=== PATIENT | male | born 1970 | race Caucasian/White ===

== ENCOUNTER 2016-06-29 16:59 | Inpatient (IN) | payer BC ==
[~2016-06-29] VITALS: Ht 182.9 cm; Wt 138.6 kg
[~2016-06-29 16:59] MED LIST: GLCSR500 PO; GLYB5TAB3 PO; LORA-741 PO; SERT-234 PO
[2016-06-29 17:03] VITALS: BP 183/78; TEMP 36.9; O2SAT 96; Ht 182.9 cm; Wt 138.6 kg
[2016-06-29] MEDS ORDERED: NVLGI7030 SC (17:26)
--- NOTE | 2016-06-29 17:29 | DIAGNOSTIC IMAGING REPORT ---
CHEST ONE VIEW PORTABLE CLINICAL HISTORY: Atypical chest pain COMPARISON STUDY: No previous studies for comparison. FINDINGS: The heart is mildly enlarged. There is no failure. There is no focal pulmonary consolidation. There are no pleural effusions. No pneumothorax is visualized.[ IMPRESSION: No active disease in the chest. Electronically signed by: Jerardo France M.D. 06/29/2016 5:28 PM Dictated Date/Time: 06/29/2016 5:27 PM
[2016-06-29 17:30] VITALS: O2SAT 96
[2016-06-29 17:49] LABS: BASO % 0.3 %; BASO ABS # 0.02 K/uL (0-0.2); COMPLETE YES; EOS % 2.8 %; HEMATOCRIT 40.6 % (42-52); IG% 0.6 %; LYMPH ABS # 2.39 K/uL (1.2-3.4); MEAN CELL VOLUME 84.2 fL (80-100); MEAN CORPUSCULAR HEMOGLOBIN 30.7 pg (25-34); MEAN CORPUSCULAR HGB CONC 36.5 g/dl (32-36); MEAN PLATELET VOLUME 11.6 fL (7.4-10.4); MONO % 7.9 %; NEUT % 53.4 %; PLATELET COUNT 190 K/uL (130-400); RED BLOOD COUNT 4.82 M/uL (4.7-6.1); WHITE BLOOD COUNT 6.82 K/uL (4.8-10.8)
[2016-06-29 18:07] LABS: ALT/SGPT 40 U/L (12-78); AST/SGOT 19 U/L (15-37); BLOOD UREA NITROGEN 15 mg/dl (7-18); BUN/CREATININE RATIO 15.9 (10-20); CALCIUM 9.2 mg/dl (8.5-10.1); CARBON DIOXIDE 28 mmol/L (21-32); CHLORIDE 102 mmol/L (98-107); CREATININE 0.95 mg/dl (0.60-1.40); GLUCOSE 142 mg/dl (70-99); POTASSIUM 3.9 mmol/L (3.5-5.1); SODIUM 141 mmol/L (136-145)
[2016-06-29 18:13] LABS: ALKALINE PHOSPHATASE 52 U/L (45-117); CKMB/CK RATIO 1.1 (0-3.0)
[2016-06-29 18:32] VITALS: PULSE 84
[2016-06-29] MEDS ORDERED: ASPIRIN 81 MG CHEW PO STA (18:46)
[2016-06-29] MEDS ORDERED: ONDANSETRON INJ 2 MG/ML 2 ML VIAL IV PRN (20:00)
[2016-06-29] MEDS ORDERED: NITROGLYCERIN 0.4 MG SL PER TAB CHARGE SL PRN (20:00)
[2016-06-29] MEDS ORDERED: ACETAMINOPHEN 325 MG TAB PO PRN (20:00)
[2016-06-29] MEDS ORDERED: LORAZEPAM 0.5 MG TAB PO PRN (20:00)
[2016-06-29] MEDS ORDERED: GLUCOSE 40% GEL 15 GM TUBE PO PRN (20:30)
[2016-06-29] MEDS ORDERED: DEXTROSE 50% 50 ML SYR IV PRN (20:30)
[2016-06-29] MEDS ORDERED: GLUCOSE 10 TABS/TUBE PO PRN (20:30)
[2016-06-29] MEDS ORDERED: GLUCAGON FOR INJ 1 MG VIAL SQ PRN (20:30)
--- NOTE | 2016-06-29 20:48 | History and Physical ---
History & Physical Date & Time of Service: Jun 29, 2016 at 20:11 Chief Complaint: Leg, Back, And Chest Pain Primary Care Physician: Irasema Alvares D.O. History of Present Illness Source: patient, family This is a 46 yo M with PMHx of DM II, HTN, hyperlipidemia, chronic lower back pain with radicular pain, diabetic neuropathy, depression and anxiety who presents to the ED after an acute onset of left sided chest pain which occured around noon today, nonradiating, 810 at that time, which resolved after about 4 hours and one ativan 0.5 mg tablet. . He denies associated shortness of breath , palpitations, headache, nausea, abdominal pain. He does note he currently feels ill, like he could have a bout of diarrhea. He reports he has had chest pain like this in the past several months, but that it eventually dissipates once he calms down. He does smoke 4-5 cigarrettes daily, along with average of marijuana twice daily The patient has had some very stressful events going on in his life recently. His one son in the past year from leukemia, since then his other son who is 20 yo has become addicted to heroin and had a court hearing in [place] today. 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 Recently he complains of pain down into his legs bilaterally, which happens at all different times during the day, like pins and needles. He previously has fallen off a roof, years of heavy lifting, etc. He admits to smoking marijuana on average twice daily to helps with pain in his legs and feet, he also is able to calm down and relax. Pt had been on zoloft starting about 2 years ago when his son became ill with leukemia, that was progressively increased up to 150 mg after his , and the patient found he became emotionally labile and started hallucinating with it so took himself off this medication. He was also previously using seroquel to help with sleep, but took himself off that medication as well. Past Medical/Surgical History Medical Problems: (1) Diabetes Status: Chronic (2) Hyperlipidemia Status: Chronic Surgical Problems: (1) S/P hernia repair Status: Resolved Family History Cancer Diabetes mellitus Heart disease Hypertension Social History Smoking Status: Current Every Day Smoker Smokeless Tobacco Use: No Alcohol Use: none Drug Use: marijuana (average of twice daily, less than 1 bowel at a time) Marital Status: , (from his first whom his 20 yo son is with.) Housing status: lives with family (Lives with , and their 3 children, ages 8, 5 and 1. ), lives with significant other Occupational Status: employed Immunizations History of Influenza Vaccine: Yes History of Pneumococcal: No Multi-Drug Resistant Organisms History of MDRO: No Allergies Coded Allergies: No Known Allergies (Unverified , 06/29/16) Home Medications Scheduled Insulin Aspart 70/30 (Novolog Mix 70/30), 50 UNITS SC BID Metformin HCl (Metformin HCl ER), 1,000 MG PO BID Scheduled PRN Lorazepam (Ativan), 0.5 MG PO HS PRN for Anxiety Review of Systems Constitutional: No chills, No fever, No sweats ENT: No sore throat, No unusual epistaxis Respiratory: No cough, No shortness of breath, No sputum, No wheezing Cardiovascular: + chest pain (See HPI), No palpitations Abdomen: + problem reported (cramping), No constipation, No diarrhea, No nausea , No pain, No vomiting Musculoskeletal: + muscle pain (legs bilaterally, ), No calf pain, No swelling Genitourinary - Male: No dysuria Neurologic: + numbness/tingling (bilateral feet) Psychiatric: + anxiety, + depression symptoms, + substance abuse (marijuana) Hematologic / Lymphatic: No abnormal bleeding/bruising Integumentary: No itch, No rash Physical Exam Vital Signs Date Time Temp Pulse Resp B/P Pulse Ox O2 Delivery O2 Flow Rate FiO2 06/29/16 18:32 84 06/29/16 17:30 96 Room Air 06/29/16 17:30 96 Room Air 06/29/16 17:03 36.9 90 18 183/78 96 Room Air General Appearance: WD/WN, no apparent distress, + obese (BMI 41.1) Head: normocephalic, atraumatic Eyes: PERRL, EOMI ENT: hearing grossly normal, pharynx normal Neck: no JVD Respiratory/Chest: lungs clear, no respiratory distress, no accessory muscle use Cardiovascular: regular rate, rhythm, no murmur, normal peripheral pulses Abdomen/GI: normal bowel sounds, non tender, soft, no organomegaly, + pertinent finding (obese) Extremities/Musculoskelatal: no calf tenderness, no pedal edema Neurologic/Psych: alert, oriented x 3, + sensory deficit (sensation dulled in feet bilaterally up to level of the ankle), + depressed affect Skin: normal color, warm/dry Diagnostics Laboratory Results Results Past 24 Hours Test 06/29/16 17:34 06/29/16 17:41 Range/Units White Blood Count 6.82 4.8-10.8 K/uL Red Blood Count 4.82 4.7-6.1 M/uL Hemoglobin 14.8 14.0-18.0 g/dL Hematocrit 40.6 42-52 % Mean Corpuscular Volume 84.2 80-100 fL Mean Corpuscular Hemoglobin 30.7 25-34 pg Mean Corpuscular Hemoglobin Concent 36.5 32-36 g/dl Platelet Count 190 130-400 K/uL Mean Platelet Volume 11.6 7.4-10.4 fL Neutrophils (%) (Auto) 53.4 % Lymphocytes (%) (Auto) 35.0 % Monocytes (%) (Auto) 7.9 % Eosinophils (%) (Auto) 2.8 % Basophils (%) (Auto) 0.3 % Neutrophils # (Auto) 3.64 1.4-6.5 K/uL Lymphocytes # (Auto) 2.39 1.2-3.4 K/uL Monocytes # (Auto) 0.54 0.11-0.59 K/uL Eosinophils # (Auto) 0.19 0-0.5 K/uL Basophils # (Auto) 0.02 0-0.2 K/uL RDW Standard Deviation 41.5 36.4-46.3 fL RDW Coefficient of Variation 13.4 11.5-14.5 % Immature Granulocyte % (Auto) 0.6 % Immature Granulocyte # (Auto) 0.04 0.00-0.02 K/uL Sodium Level 141 136-145 mmol/L Potassium Level 3.9 3.5-5.1 mmol/L Chloride Level 102 98-107 mmol/L Carbon Dioxide Level 28 21-32 mmol/L Anion Gap 11.0 3-11 mmol/L Blood Urea Nitrogen 15 7-18 mg/dl Creatinine 0.95 0.60-1.40 mg/dl Est Creatinine Clear Calc Drug Dose 138.7 ml/min Estimated GFR () 110.0 Estimated GFR (Non- 94.9 BUN/Creatinine Ratio 15.9 10-20 Random Glucose 142 70-99 mg/dl Calcium Level 9.2 8.5-10.1 mg/dl Total Bilirubin 0.5 0.2-1 mg/dl Direct Bilirubin < 0.1 0-0.2 mg/dl Aspartate Amino Transf (AST/SGOT) 19 15-37 U/L Alanine Aminotransferase (ALT/SGPT) 40 12-78 U/L Alkaline Phosphatase 52 45-117 U/L Total Creatine Kinase 122 39-308 U/L Creatine Kinase MB 1.3 0.5-3.6 ng/ml Creatine Kinase MB Ratio 1.1 0-3.0 Troponin I < 0.015 0-0.045 ng/ml Total Protein 7.5 6.4-8.2 gm/dl Albumin 4.2 3.4-5.0 gm/dl Lipase 125 73-393 U/L Bedside D-Dimer 52 0-450 ng/mlFEU Diagnostic Radiology CHEST ONE VIEW PORTABLE CLINICAL HISTORY: Atypical chest pain COMPARISON STUDY: No previous studies for comparison. FINDINGS: The heart is mildly enlarged. There is no failure. There is no focal pulmonary consolidation. There are no pleural effusions. No pneumothorax is visualized.[ IMPRESSION: No active disease in the chest. Electronically signed by: Jerardo France M.D. 06/29/2016 5:28 PM Dictated Date/Time: 06/29/2016 5:27 PM Impression Assessment and Plan This is a 46 yo M with PMHx of DM II, HTN, hyperlipidemia, chronic lower back pain with radicular pain, diabetic neuropathy, depression and anxiety who presents to the ED after an acute onset of left sided chest pain. Chest Pain - Admit to tele - occurred around noon today, nonradiating, 02/01 at that time, which resolved after about 4 hours and one ativan 0.5 mg tablet. 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 - Will start gabapentin 100 mg BID to see if this works for neuropathic pain. It may also help with pts anxiety as well. Anxiety/Depression - Pt previously had good response to Zoloft when the dosage was 100 mg. When it was increased to 150mg the pt had hallucinations and became more emotionally labile so would not want to increase the dose to that. He is agreeable to a psychiatric consult at this time due to multiple stressful events in his life currently. He was encouraged to speak to his PCP about this ( although PCP was recently changed). - Pt has done counseling in the past and reports it was beneficial - Psych consulted - Cont CALL OR CONTACT CENTRE TEAM LEADER ativan 0.5 mg HS prn DVT ppx: Lovenox, teds, OOB CODE STATUS: Full code PA Physician Supervision Note: I interviewed and examined the patient. Discussed with Faiza Valladares PAC and agree with findings and plan as documented in the note. Any exceptions or clarifications are listed here: None Pt with increased stressors in his life, cardiac risk factors and chest pain, recommended for admission, given all that is going on with his son in [place], he has elected to leave, understands that he can return if symptoms recurr. I recommended that he seek medical care or arrange stress test next week. Documented By: Yadiel Cueto Level of Care Telemetry Advanced Directives Existing Advance Directive: No Existing Living Will: No Existing Power of Fabricator Special Items: No Existing Health Care Proxy: No Resuscitation Status FULL RESUSCITATION VTE Prophylaxis VTE Risk Assessment Done? Y/N: Yes Risk Level: Low Given or contraindicated: Enoxaparin (Lovenox)SQ, T.E.D. Stockings, SCD's
[2016-06-29] MEDS ORDERED: GABAPENTIN 100 MG CAP PO SCH (21:00)
--- NOTE | 2016-06-29 21:49 | EMERGENCY ROOM VISIT NOTE ---
History Report prepared by Kavita: Mickie Soto Under the Supervision of: Dr. Shady Craven M.D. First contact with patient: 17:04 Chief Complaint: CHEST PAIN Stated Complaint: LEG, BACK, AND CHEST PAIN Nursing Triage Summary: Pt reports midsternal chest pain into neck. B/L feet are numb. SOB, dizzy. Denies n/v. Sx began at noon. History of Present Illness The patient is a 46 year old male who presents to the Emergency Room with complaints of resolved chest pain that began around 1200 today. When his chest pain began around 1200 today. He rated his discomfort as an 8/10 in severity when the pain began and describes it as a sharp pain. The patient states that the pain did not radiate to any area of his body at this time. He states that he took his prescribed Ativan for anxiety when he developed the chest pain, but denies any immediate relief. The patient states that later the pain seemed to slightly subside when his partner came home. He additionally notes shortness of breath today, but states that his chest pain has resolved. The patient notes that he has a history of poorly controlled diabetes, noting that he takes Metformin. He states that over the past few months he has had chest pain intermittently, but denies consulting his PCP due to a change in provider. The patient notes a recent cough. He denies any history of hypertension, but notes that he has always been borderline. The patient notes chronic back problems and states that he has had problems with leg pain and leg numbness. The patient notes a strong family history of heart disease, noting that his father had several MIs and notes that he is a smoker. He additionally notes a history of hyperlipidemia. The patient states that he is a [place] and states that he does a lot of bending and lifting daily. He denies any personal or family history of blood clot. The patient's significant other notes increased swelling to the patient's lower extremities. Pt denies LOC, headache, fevers, chills, diaphoresis, visual changes, neck pain, nausea, vomiting, abdominal pain , back pain, melena, hematochezia, urinary symptoms, numbness, weakness, lymphadenopathy, rash, or other complaints. Source of History: patient Onset: 1200 today Position: chest Symptom Intensity: 8/10 Quality: sharp Timing: resolved Modifying Factors (Relieving): other (ativan) Associated Symptoms: + SOB, + numbness (leg) Note: Associated Symptoms: increased edema to lower extremities. Review of Systems See HPI for pertinent positives and negatives. A total of ten systems were reviewed and were otherwise negative. Past Medical & Surgical Medical Problems: (1) Chest pain (2) Diabetes (3) Hyperlipidemia Surgical Problems: (1) S/P hernia repair Family History Cancer Diabetes mellitus Heart disease Hypertension Social History Smoking Status: Current Every Day Smoker Alcohol Use: occasionally Marital Status: Housing Status: lives with family Occupation Status: employed Current/Historical Medications Scheduled Insulin Aspart 70/30 (Novolog Mix 70/30), 50 UNITS SC BID Metformin HCl (Metformin HCl ER), 1,000 MG PO BID Scheduled PRN Lorazepam (Ativan), 0.5 MG PO HS PRN for Anxiety Allergies Coded Allergies: No Known Allergies (Unverified , 06/29/16) Physical Exam Vital Signs Date Time Temp Pulse Resp B/P Pulse Ox O2 Delivery O2 Flow Rate FiO2 06/29/16 18:32 84 06/29/16 17:30 96 Room Air 06/29/16 17:30 96 Room Air 06/29/16 17:03 36.9 90 18 183/78 96 Room Air Physical Exam GENERAL: Awake, alert, well-appearing, in no distress HENT: Normocephalic, atraumatic. Oropharynx unremarkable. EYES: Normal conjunctiva. Sclera non-icteric. NECK: Supple. No nuchal rigidity. FROM. No JVD. RESPIRATORY: Clear to auscultation. CARDIAC: Regular rate, normal rhythm. Extremities warm and well perfused. Pulses equal. ABDOMEN: Soft, non-distended. No tenderness to palpation. No rebound or guarding. No masses. RECTAL: Deferred. MUSCULOSKELETAL: Chest examination reveals no tenderness. The back is symmetrical on inspection without obvious abnormality. There is no CVA tenderness to palpation. No joint edema. LOWER EXTREMITIES: Calves are equal size bilaterally and non-tender. No edema. No discoloration. NEURO: Normal sensorium. No sensory or motor deficits noted. SKIN: No rash or jaundice noted. Medical Decision & Procedures ER Provider Diagnostic Interpretation: X-ray: Per my interpretation, radiologist review. CHEST ONE VIEW PORTABLE CLINICAL HISTORY: Atypical chest pain COMPARISON STUDY: No previous studies for comparison. FINDINGS: The heart is mildly enlarged. There is no failure. There is no focal pulmonary consolidation. There are no pleural effusions. No pneumothorax is visualized.[ IMPRESSION: No active disease in the chest. Electronically signed by: Jerardo France M.D. 06/29/2016 5:28 PM Dictated Date/Time: 06/29/2016 5:27 PM Laboratory Results 06/29/16 17:34 Red Blood Count 4.82, Mean Corpuscular Volume 84.2, Mean Corpuscular Hemoglobin 30.7, Mean Corpuscular Hemoglobin Concent 36.5, Mean Platelet Volume 11.6, Neutrophils (%) (Auto) 53.4, Lymphocytes (%) (Auto) 35.0, Monocytes (%) (Auto) 7.9, Eosinophils (%) (Auto) 2.8, Basophils (%) (Auto) 0.3, Neutrophils # (Auto) 3.64, Lymphocytes # (Auto) 2.39, Monocytes # (Auto) 0.54, Eosinophils # (Auto) 0.19, Basophils # (Auto) 0.02 06/29/16 17:34 Test 06/29/16 17:34 06/29/16 17:41 White Blood Count 6.82 K/uL (4.8-10.8) Red Blood Count 4.82 M/uL (4.7-6.1) Hemoglobin 14.8 g/dL (14.0-18.0) Hematocrit 40.6 % (42-52) Mean Corpuscular Volume 84.2 fL (80-100) Mean Corpuscular Hemoglobin 30.7 pg (25-34) Mean Corpuscular Hemoglobin Concent 36.5 g/dl (32-36) Platelet Count 190 K/uL (130-400) Mean Platelet Volume 11.6 fL (7.4-10.4) Neutrophils (%) (Auto) 53.4 % Lymphocytes (%) (Auto) 35.0 % Monocytes (%) (Auto) 7.9 % Eosinophils (%) (Auto) 2.8 % Basophils (%) (Auto) 0.3 % Neutrophils # (Auto) 3.64 K/uL (1.4-6.5) Lymphocytes # (Auto) 2.39 K/uL (1.2-3.4) Monocytes # (Auto) 0.54 K/uL (0.11-0.59) Eosinophils # (Auto) 0.19 K/uL (0-0.5) Basophils # (Auto) 0.02 K/uL (0-0.2) RDW Standard Deviation 41.5 fL (36.4-46.3) RDW Coefficient of Variation 13.4 % (11.5-14.5) Immature Granulocyte % (Auto) 0.6 % Immature Granulocyte # (Auto) 0.04 K/uL (0.00-0.02) Anion Gap 11.0 mmol/L (3-11) Est Creatinine Clear Calc Drug Dose 138.7 ml/min Estimated GFR () 110.0 Estimated GFR (Non- 94.9 BUN/Creatinine Ratio 15.9 (10-20) Calcium Level 9.2 mg/dl (8.5-10.1) Total Bilirubin 0.5 mg/dl (0.2-1) Direct Bilirubin < 0.1 mg/dl (0-0.2) Aspartate Amino Transf (AST/SGOT) 19 U/L (15-37) Alanine Aminotransferase (ALT/SGPT) 40 U/L (12-78) Alkaline Phosphatase 52 U/L (45-117) Total Creatine Kinase 122 U/L (39-308) Creatine Kinase MB 1.3 ng/ml (0.5-3.6) Creatine Kinase MB Ratio 1.1 (0-3.0) Troponin I < 0.015 ng/ml (0-0.045) Total Protein 7.5 gm/dl (6.4-8.2) Albumin 4.2 gm/dl (3.4-5.0) Lipase 125 U/L (73-393) Bedside D-Dimer 52 ng/mlFEU (0-450) Laboratory results reviewed by me Medications Administered Medications (Trade) Dose Ordered Sig/Nathan Route Start Time Stop Time Status Last Admin Dose Admin Aspirin (Aspirin Chew) 324 mg NOW STAT PO 06/29/16 18:46 06/29/16 18:47 DC 06/29/16 19:14 324 MG ECG Indication: chest pain, SOB/dyspnea Rate (beats per minute): 86 Rhythm: normal sinus Findings: no acute ischemic change, no ectopy ED Course 1709: The patient was evaluated in room A3. A complete history and physical exam was performed by the medical student. 1727: The patient was evaluated in room A3. A complete history and physical exam was performed. 1843: I discussed the patients case with CRESENCIO Chacko. The [facility] is going to evaluate the patient for further treatment. 1845: Ordered Aspirin 324 mg PO. 1848: I reevaluated the patient and he is resting comfortably. I discussed the exam findings with him and I discussed the treatment plan. He verbalized complete understanding and agreement. He will be evaluated for further treatment. Medical Decision Triage Nursing notes reviewed. The patient's presentation and history were concerning for chest pain. Etiologies such as cardiac ischemia, aortic dissection, pulmonary embolism, pneumonia, pneumothorax, musculoskeletal, infections, gastrointestinal, as well as others were entertained. Patient was evaluated. He has multiple cardiac risk factors. He is a smoker and diabetic. He is overweight. He is sedentary and his family had multiple coronary events in their 40s. The patient was pain-free on arrival. He had an unremarkable CBC, ECG, chemistry panel, LFTs, lipase, d-dimer and cardiac markers. The patient was given aspirin. I discussed further management in the hospital and the patient was in agreement. Consultation was made with internal medicine. The patient was evaluated in the Emergency Room for further treatment. The chart was completed utilizing [employer] Speech voice recognition software. Grammatical errors, random word insertions, pronoun errors, and incomplete sentences are an occasional consequence of this system due to software limitations, ambient noise, and hardware issues. Any formal questions or concerns about the content, text, or information contained within the body of this dictation should be directly addressed to the physician for clarification. Consults Time Called: 1843 Consulting Physician: CRESENCIO Chacko Returned Call: 1843 I discussed the patients case with CRESENCIO Chacko. [facility] is going to evaluate the patient for further treatment. Impression Primary Impression: Substernal chest pain Scribe Attestation The scribe's documentation has been prepared under my direction and personally reviewed by me in its entirety. I confirm that the note above accurately reflects all work, treatment, procedures, and medical decision making performed by me. Departure Information Dispostion Being Evaluated By Hospitalist Referrals No Doctor, Assigned (PCP)
[2016-06-30] MEDS ORDERED: METFORMIN HCL 500 MG TABCR PO SCH (08:00)
[2016-06-30] MEDS ORDERED: INSULIN 70% ASPART PROTAMINE/30% ASPART SC SCH (08:00)
[2016-06-30] MEDS ORDERED: ENOXAPARIN 40 MG/0.4 ML SYR SQ SCH (09:00)
--- NOTE | 2016-06-30 17:04 | Psychiatric Consultation ---
Psychiatric Consultation Date of Service: Jun 30, 2016. Patient left AMA before could be seen for consultation.
--- NOTE | 2016-07-04 12:08 | Discharge Summary ---
Discharge Summary Admission Date: Jun 29, 2016 at 20:10 Discharge Date: Jul 04, 2016 Discharge Disposition: Home Principal Diagnosis: pt left ama Immunizations: Have You Had Influenza Vaccine: Yes History of Pneumococcal: No Hospital Course This is a 46 yo M with PMHx of DM II, HTN, hyperlipidemia, chronic lower back pain with radicular pain, diabetic neuropathy, depression and anxiety who presents to the ED after an acute onset of left sided chest pain. Chest Pain - Admit to tele - occurred around noon today, nonradiating, 02/01 at that time, which resolved after about 4 hours and one ativan 0.5 mg tablet. - Pt with multiple risk factors: tobacco use, obesity, HTN, life stress - D-dimer negative - EKG reviewed and without ischemic or ST changes - Troponin-I negative on first set, will trend x 3 - Ordered ECHO - Will order stress test HTN - Pt is not on any antihypertensive agents Hyperlipidemia - Not on PATIENT RELATIONS DIRECTOR statin, diet controlled Diabetes Mellitus, type II / Diabetic neuropathy - Continue Novolog 70/30 mix - Cont metformin 1000 mg BID - Accuchecks ACHS- if BGs not under 140 add novolog - Check A1C in morning Chronic Low Back Pain - Pt had Lumbar x rays completed last month and were to be reviewed by his PCP, per report he couldn't get MRI as his insurance wouldn't cover it. - Will start gabapentin 100 mg BID to see if this works for neuropathic pain. It may also help with pts anxiety as well. Anxiety/Depression - Pt previously had good response to Zoloft when the dosage was 100 mg. When it was increased to 150mg the pt had hallucinations and became more emotionally labile so would not want to increase the dose to that. He is agreeable to a psychiatric consult at this time due to multiple stressful events in his life currently. He was encouraged to speak to his PCP about this ( although PCP was recently changed). - Pt has done counseling in the past and reports it was beneficial - Psych consulted - Cont PATIENT RELATIONS DIRECTOR ativan 0.5 mg HS prn DVT ppx: Lovenox, teds, OOB CODE STATUS: Full code PA Physician Supervision Note: I interviewed and examined the patient. Discussed with Faiza ROMERO and agree with findings and plan as documented in the note. Any exceptions or clarifications are listed here: None Pt with increased stressors in his life, cardiac risk factors and chest pain, recommended for admission, given all that is going on with his son in [place], he has elected to leave, understands that he can return if symptoms recurr. I recommended that he seek medical care or arrange stress test next week. Documented By: Yadiel Cueto This includes examination of the patient, discharge planning, medication reconciliation, and communication with other providers. Discharge Instructions Please refer to the electronic Patient Visit Report (Discharge Instructions) for additional information.
== END 2016-06-29 21:15 | disposition left against medical advice (07) | DRG 313 ==
LOC: C.EDB 17:01 → C.EDINP 20:10 → CANBEDREQ 22:26
PROVIDERS: ADMIT Internal Medicine; ATTEND Hospitalist
DX: R07.9 Chest pain, unspecified (principal); Z68.41 Body mass index [BMI] 40.0-44.9, adult; I10 Essential (primary) hypertension; E78.5 Hyperlipidemia, unspecified; G89.29 Other chronic pain; M54.5 Low back pain; E11.40 Type 2 diabetes mellitus with diabetic neuropathy, unspecified; F32.9 Major depressive disorder, single episode, unspecified; F41.9 Anxiety disorder, unspecified; F17.210 Nicotine dependence, cigarettes, uncomplicated; F12.90 Cannabis use, unspecified, uncomplicated; E66.9 Obesity, unspecified; Z53.21 Procedure and treatment not carried out due to patient leaving prior to being seen by health care provider; Z82.49 Family history of ischemic heart disease and other diseases of the circulatory system; Z63.4 Disappearance and death of family member; Z63.72 Alcoholism and drug addiction in family; Z79.4 Long term (current) use of insulin; Z79.84 Long term (current) use of oral hypoglycemic drugs; Z79.899 Other long term (current) drug therapy